=== PATIENT | male | born 2000 | race Caucasian/White ===

== ENCOUNTER 2019-08-04 21:20 | Emergency (ER) | payer OTHER ==
[~2019-08-04] VITALS: Ht 180.3 cm; Wt 90.7 kg
[2019-08-04 21:30] VITALS: BP 133/69
--- NOTE | 2019-08-04 21:30 | NUR ---
18 Y/O MALE C/O COUGH X 3DAYS. PT HAS DRY/PRODUCTIVE COUGH. DENIES SORE THROAT, PAIN. PT STATES HE HAD VOMITTING EPISODES,N, DENIES DIARRHEA. LUNG SOUNDS CLEAR ALL THROUGHOUT. NO RESP DISTRESS NOTED. VSS. A & O X4. STEADY GAIT. CHANGES OF APPETTIE. NO FLU SHOT. NO BLOOD IN VOMIT. ABD IS SOFT,FLAT, NONTENDER, ACTIVE BS. NKA. NO PMH.
--- NOTE | 2019-08-04 21:30 | NUR ---
to bed # 12 ambulatory
[2019-08-04] MEDS ORDERED: ONDANSETRON 4 MG ODT PO ONE (22:00)
--- NOTE | 2019-08-04 22:00 | NUR ---
Note kalee in EDM - 08/04/19 at 2224 by KELTON Patient discharged with v/s stable. Written and verbal after care instructions given and explained. Patient alert, oriented and verbalized understanding of instructions. Ambulatory with steady gait. All questions addressed prior to discharge. ID band removed. Patient advised to follow up with PMD. Rx of ZOFRAN given. Patient educated on indication of medication including possible reaction and side effects. Opportunity to ask questions provided and answered.
--- NOTE | 2019-08-04 22:17 | NUR ---
PT TOLERATED PO FLUIDS WELL.
== END 2019-08-04 22:20 | disposition home or self-care (01) ==
LOC: MED 21:20
DX: J06.9 Acute upper respiratory infection, unspecified (principal)
CPT/HCPCS: 99283; Q0162

== ENCOUNTER 2020-10-03 15:13 | Emergency (ER) | payer OTHER ==
[~2020-10-03] VITALS: Ht 180.3 cm; Wt 97.1 kg
[2020-10-03 15:17] VITALS: BP 130/70
--- NOTE | 2020-10-03 15:20 | NUR ---
PT AMBULATED TO BED 3.
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
[2020-10-03] MEDS ORDERED: KETOROLAC 60 MG/2 ML VIAL IM ONE (15:40)
--- NOTE | 2020-10-03 15:44 | NUR ---
Xray at bedside.
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
[2020-10-03] MEDS ORDERED: NAPR-54 PO (16:13)
[2020-10-03] MEDS ORDERED: METH750T5 PO (16:13)
--- NOTE | 2020-10-03 16:45 | NUR ---
Patient resting in position of comfort. manager monitoring in place. Rsepirations even/unlabored. Pt states pain relief 01/08. Bed locked in lowest position, side rails x1, call light in reach.
[2020-10-03 17:13] VITALS: BP 114/64
--- NOTE | 2020-10-03 17:13 | NUR ---
Patient discharged with v/s stable. Written and verbal after care instructions given and explained. Patient alert, oriented and verbalized understanding of instructions. Ambulatory with steady gait. All questions addressed prior to discharge. ID band removed. Patient advised to follow up with PMD. Rx of Methocarbamol, Naproxen given. Patient educated on indication of medication including possible reaction and side effects. Opportunity to ask questions provided and answered.
== END 2020-10-03 17:13 | disposition home or self-care (01) ==
LOC: MED 15:13
DX: S16.1XXA Strain of muscle, fascia and tendon at neck level, initial encounter (principal); X58.XXXA Exposure to other specified factors, initial encounter; Y93.89 Activity, other specified; Y92.89 Other specified places as the place of occurrence of the external cause; Y99.8 Other external cause status; Z79.899 Other long term (current) drug therapy; V49.3XXA Car occupant (driver) (passenger) injured in unspecified nontraffic accident, initial encounter
CPT/HCPCS: 72050; 96372; 99283; J1885

== ENCOUNTER 2023-01-31 08:46 | Emergency (ER) | payer OTHER ==
[~2023-01-31] VITALS: Ht 167.6 cm; Wt 81.6 kg
[~2023-01-31 08:46] MED LIST: METH750T5 PO; NAPR-54 PO
[2023-01-31 08:59] VITALS: BP 115/76; PULSE 89; RESP 18; TEMP 97.8; O2SAT 98
--- NOTE | 2023-01-31 09:03 | NUR ---
Patient ambulated to bed 7.
--- NOTE | 2023-01-31 09:28 | NUR ---
Dr. Rosen evaluating patient at bedside.
[2023-01-31] MEDS ORDERED: IBUPROFEN 400 MG TAB PO ONE (09:35)
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
[2023-01-31] MEDS ORDERED: NAPR-1704 PO (09:53)
--- NOTE | 2023-01-31 10:16 | NUR ---
Patient discharged with v/s stable. Written and verbal after care instructions given and explained. Patient alert, oriented and verbalized understanding of instructions. Ambulatory with steady gait. All questions addressed prior to discharge. ID band removed. Patient advised to follow up with PMD. Rx of NAPROXEN given. Opportunity to ask questions provided and answered.
== END 2023-01-31 10:16 | disposition home or self-care (01) ==
LOC: MED 08:46
DX: S16.1XXA Strain of muscle, fascia and tendon at neck level, initial encounter (principal); Z79.899 Other long term (current) drug therapy; Z79.1 Long term (current) use of non-steroidal anti-inflammatories (NSAID); V89.2XXA Person injured in unspecified motor-vehicle accident, traffic, initial encounter; Y93.89 Activity, other specified; Y92.410 Unspecified street and highway as the place of occurrence of the external cause; Y99.8 Other external cause status
CPT/HCPCS: 99282

== ENCOUNTER 2023-03-09 18:26 | Emergency (ER) | payer SELFPAY ==
[~2023-03-09] VITALS: Ht 162.6 cm; Wt 87.2 kg
[~2023-03-09 18:26] MED LIST changes: +NAPR-1704 PO
[2023-03-09 18:41] VITALS: BP 122/68; PULSE 75; RESP 20; O2SAT 97
== END 2023-03-09 22:00 | disposition left against medical advice (07) ==
LOC: MED 18:26
DX: R68.84 Jaw pain (principal); Z53.21 Procedure and treatment not carried out due to patient leaving prior to being seen by health care provider
CPT/HCPCS: 99281